=== PATIENT | female | born 1990 | race Caucasian/White ===

== ENCOUNTER 2021-03-09 14:30 | Outpatient (CLI) | payer BC | END 2021-03-09 14:31 | disposition home or self-care (01) | LOC: CSHULT 14:30 | PROVIDERS: ATTEND Internal Medicine Hematology & Oncology | DX: C50.911 Malignant neoplasm of unspecified site of right female breast (principal); R22.31 Localized swelling, mass and lump, right upper limb; M54.2 Cervicalgia; R59.0 Localized enlarged lymph nodes | CPT/HCPCS: 76536; 76999 ==

== ENCOUNTER 2021-10-09 08:21 | Day surgery (SDC) | payer BC | END 2021-10-09 11:33 | disposition home or self-care (01) | LOC: CSHSDC/OP 08:21 | PROVIDERS: ATTEND Internal Medicine Hematology & Oncology | DX: Z23 Encounter for immunization (principal); U07.1 COVID-19 | CPT/HCPCS: 96365; J3490; M0243; Q0244 ==

== ENCOUNTER 2021-12-08 09:55 | Outpatient (CLI) | payer BC | END 2021-12-08 09:56 | disposition home or self-care (01) | LOC: CSHMRI 09:55 | PROVIDERS: ATTEND Radiology Radiation Oncology | DX: C79.31 Secondary malignant neoplasm of brain (principal) | CPT/HCPCS: 70553 ==

== ENCOUNTER 2022-03-31 12:28 | Outpatient (CLI) | payer BC | END 2022-03-31 12:29 | disposition home or self-care (01) | LOC: CSHMRI 12:28 | PROVIDERS: ATTEND Radiology Radiation Oncology | DX: C79.40 Secondary malignant neoplasm of unspecified part of nervous system (principal); C79.51 Secondary malignant neoplasm of bone; J90 Pleural effusion, not elsewhere classified; M89.9 Disorder of bone, unspecified | CPT/HCPCS: 72156; 72157; 72158 ==

== ENCOUNTER 2024-03-09 05:48 | Day surgery (SDC) | payer BC, MEDICARE ==
[2024-03-07 11:35] VITALS: BMI 18.6
[2024-03-09] MEDS ORDERED: EPINEPHrine 1 MG/ML VIAL ONE (06:12)
[2024-03-09] MEDS ORDERED: Bupivacaine PF 0.5% 30 ML VIAL ONE (06:12)
[2024-03-09] MEDS ORDERED: CEFAZOLIN 2 GM VIAL ONE (06:47)
[2024-03-09] MEDS ORDERED: PROPOFOL 20 ML ONE (06:57)
[2024-03-09] MEDS ORDERED: fentaNYL 50 mcg/mL 1 mL Vial ONE ×2 (06:57→07:55)
[2024-03-09] MEDS ORDERED: Lidocaine 1% PF 5 ML VIAL ONE (06:58)
[2024-03-09] MEDS ORDERED: HYDROcodone/Acetaminophen 5/325 mg Tablet ONE (08:24)
== END 2024-03-09 08:50 | disposition home or self-care (01) ==
LOC: CSHSDC 05:48
PROVIDERS: ATTEND Surgery
PROC: 0JH60WZ Insertion of Totally Implantable Vascular Access Device into Chest Subcutaneous Tissue and Fascia, Open Approach (ICD-10-PCS; principal; 2024-03-09)
DX: C50.911 Malignant neoplasm of unspecified site of right female breast (principal); C79.31 Secondary malignant neoplasm of brain; C79.51 Secondary malignant neoplasm of bone; C77.3 Secondary and unspecified malignant neoplasm of axilla and upper limb lymph nodes; C78.7 Secondary malignant neoplasm of liver and intrahepatic bile duct; J91.0 Malignant pleural effusion; Z17.0 Estrogen receptor positive status [ER+]; Z88.1 Allergy status to other antibiotic agents
CPT/HCPCS: 71045; A6258; C1788; J0171; J0665; J1642; J2704; J3010

== ENCOUNTER 2024-10-22 09:51 | Outpatient (CLI) | payer OTHER, MEDICARE | END 2024-10-22 09:52 | disposition home or self-care (01) | LOC: CSHCT 09:51 | PROVIDERS: ATTEND Internal Medicine Hematology & Oncology | DX: C50.911 Malignant neoplasm of unspecified site of right female breast (principal); D70.9 Neutropenia, unspecified; R91.8 Other nonspecific abnormal finding of lung field; J90 Pleural effusion, not elsewhere classified; I31.39 Other pericardial effusion (noninflammatory); C78.7 Secondary malignant neoplasm of liver and intrahepatic bile duct; N63.20 Unspecified lump in the left breast, unspecified quadrant | CPT/HCPCS: 71250 ==

== ENCOUNTER 2025-09-10 11:58 | Outpatient (CLI) | payer OTHER, MEDICARE | END 2025-09-10 11:59 | disposition home or self-care (01) | LOC: CSHULT 11:58 | PROVIDERS: ATTEND Internal Medicine Hematology & Oncology | DX: C50.911 Malignant neoplasm of unspecified site of right female breast (principal); D70.8 Other neutropenia | CPT/HCPCS: 93306 ==